=== PATIENT | female | born 1955 | race Caucasian/White ===

== ENCOUNTER 2017-05-25 20:29 | Emergency (ER) | payer OTHER ==
[2017-05-25] MEDS ORDERED: MORPHINE SULFATE 5 MG/ML PFS IVP ONE (20:42)
[2017-05-25] MEDS ORDERED: ONDANSETRON HCL IV 4 MG/2 ML VIAL IVP ONE (20:42)
--- NOTE | 2017-05-25 20:45 | Emergency Department Record ---
History of Present Illness - General Chief Complaint: Abdominal Pain Stated Complaint: ABD PAIN Time Seen by Provider: 05/25/17 20:41 Source: Patient Mode of Arrival: Ambulatory Limitations: No limitations - History of Present Illness Initial Comments: 61 yo female presents to ED with a CC of epigastric pain that began 3-4 hours ago that radiates through to her back. Patient reports nausea without vomiting , and denies history of these symptoms previously. Patient denies previous abdominal surgeries, and denies health problems other than DM II. Patient denies chest pain or difficulty breathing, and patient denies fevers, chills, or recent illness. MD Complaint: Abdominal pain Onset/Timin -: Hour(s) Location: Epigastric Radiation: Back Severity: Moderate Consistency: Constant Improves With: Nothing Worsens With: Nothing Associated Symptoms: Nausea - Related Data Patient : No Home Medications Medication Instructions Recorded Confirmed Last Taken Bupropion HCl [Wellbutrin Xl] 300 mg PO DAILY 05/25/17 05/25/17 Unknown Lisinopril [Zestril] 2.5 mg PO DAILY 05/25/17 05/25/17 Unknown Metformin HCl 500 mg PO DAILY 05/25/17 05/25/17 Unknown Thyroid,Pork [[place] Thyroid] 30 mg PO DAILY 05/25/17 05/25/17 Unknown Allergies Allergy/AdvReac Type Severity Reaction Status Date / Time No Known Drug Allergies Allergy Verified 05/25/17 20:35 Review of Systems Constitutional: Denies: Chills, Fever, Malaise, Night sweats Eyes: Denies: Eye discharge, Eye pain ENT: Denies: Congestion, Ear pain, Epistaxis Respiratory: Denies: Cough, Dyspnea Cardiovascular: Denies: Chest pain, Dyspnea on exertion Endocrine: Denies: Fatigue, Heat or cold intolerance Gastrointestinal: Reports: Abdominal pain, Nausea. Denies: Vomiting Genitourinary: Denies: Dysuria, Frequency, Incontinence, Retention Musculoskeletal: Denies: Arthralgia, Back pain Skin: Denies: Bruising, Change in color Neurological: Denies: Abnormal gait, Confusion, Headache, Seizure Psychiatric: Denies: Anxiety Hematological/Lymphatic: Denies: Anemia, Blood Clots Physical Exam - General General Appearance: Alert, Oriented x3, Cooperative, Moderate distress Limitations: No limitations - Head Head exam: Atraumatic, Normocephalic, Normal inspection Head exam detail: negative: Abrasion, Contusion, Vincent's sign, General tenderness, Hematoma, Laceration - Eye Eye exam: Normal appearance. negative: Conjunctival injection, Periorbital swelling, Periorbital tenderness, Scleral icterus - ENT Ear exam: negative: Auricular hematoma, Auricular trauma Nasal Exam: negative: Active bleeding, Discharge, Dried blood, Foreign body Mouth exam: negative: Drooling, Laceration, Muffled voice, Tongue elevation - Neck Neck exam: Normal inspection. negative: Meningismus, Tenderness - Respiratory Respiratory exam: Normal lung sounds bilaterally. negative: Rales, Respiratory distress, Rhonchi, Stridor - Cardiovascular Cardiovascular Exam: Regular rate, Normal rhythm, Normal heart sounds - GI/Abdominal GI/Abdominal exam: Soft, Tenderness (TTP LUQ, epigastric region on examination, no rebound or guarding present.), Other. negative: Rebound, Rigid - Rectal Rectal exam: Deferred - exam: Deferred - Extremities Extremities exam: Normal inspection. negative: Calf tenderness, Pedal edema, Tenderness - Back Back exam: Denies: CVA tenderness (R), CVA tenderness (L) - Neurological Neurological exam: Alert, Normal gait, Oriented X3 - Psychiatric Psychiatric exam: Normal affect, Normal mood - Skin Skin exam: Normal color. negative: Abrasion Type of lesion: negative: abrasion Course - Reevaluation(s) Reevaluation #1: 05/25/17 21:06 EKG: NSR 76 Normal axis, normal intervals No acute ST-T wave changes are present. Reevaluation #2: 05/25/17 21:18 Labs reviewed and are grossly unremarkable for an acute process. Reevaluation #3: 05/25/17 23:10 CT Abdomen and Pelvis: Dilation of the CBD and intrahepatic ducts, cannot exclude obstruction, no calcified gallstones present, uterine fibroid, chronic degenerative changes to the lumbar spine. Recommend ERCP or MRCP for further evaluation. Patient was reassessed and updated on all results, reports that he is resting pain-free at this time. Will continue to monitor for 45-60 minutes as the patient received Morphine and Dilaudid for her pain symptoms (last dose was 1 hour ago). Patient and family agree with the plan of care as discussed. Reevaluation #4: 05/25/17 23:57 On re-evaluation, patient reports that her pain symptoms have not returned. Laboratory studies do not appears c/w biliary obstruction either. Patient was counseled at length to return to ED for any recurrence of her symptoms and the patient verbalizes understanding of all instructions at this time. Medical Decision Making - Lab Data Result diagrams: 05/25/17 20:46 05/25/17 20:46 Disposition Disposition: Discharge Clinical Impression: Epigastric abdominal pain Disposition: Home, Self-Care Condition: (2) Stable Instructions: Abdominal Pain (ED) Additional Instructions: Return to ED if your symptoms worsen or if you have any concerns. Follow-up with your family doctor in 1-3 days as directed. Forms: Patient Portal Access Time of Disposition: 23:59 Quality - Quality Measures Quality Measures: N/A - Blood Pressure Screening Does Patient Have Any of the Following: No Blood Pressure Classification: Normal BP Reading Systolic Measurement: 118 Diastolic Measurement: 60 Screening for High Blood Pressure: < Normal BP, F/U Not Required > [G8783]
[2017-05-25 20:52] LABS: HEMATOCRIT 41.4 % (35.0-47.0); HEMOGLOBIN 13.8 gm/dl (11.6-16.0); MEAN CELL VOLUME 89.4 fl (81-97); MEAN CORPUSCULAR HEMOGLOBIN 29.8 pg (27-33); MEAN CORPUSCULAR HGB CONC 33.3 g/dl (32-36); MEAN PLATELET VOLUME 10.9 fl (7.4-10.4); PLATELET COUNT 349 K/uL (130-400); RED BLOOD COUNT 4.63 M/uL (3.80-5.40); RED CELL DISTRIBUTION WIDTH 13.4 % (11.5-14.5); WHITE BLOOD COUNT W/O DIFF 9.9 K/uL (4.2-12.2)
[2017-05-25 21:03] LABS: ALB/GLOB RATIO 1.4 (1.1-1.8); ALBUMIN 4.4 gm/dL (3.5-5.0); ALKALINE PHOSPHATASE 91 U/L (38-126); ALT/SGPT 33 U/L (9-52); ANION GAP 9.1 (7-16); AST/SGOT 28 U/L (14-36); BILIRUBIN,TOTAL 0.44 mg/dL (0.2-1.3); BLOOD UREA NITROGEN 18 mg/dL (7-17); CARBON DIOXIDE 22.9 mmol/L (22-30); CREATININE 0.8 mg/dL (0.52-1.04); EST GLOMERULAR FILTRATION RATE > 60 ml/min; GLUCOSE,RANDOM 160 mg/dL (70-110); LIPASE 85 U/L (23-300); TOTAL PROTEIN 7.5 gm/dL (6.3-8.2)
[2017-05-25] MEDS ORDERED: HYDROMORPHONE HCL 1MG/ML **SYRINGE IVP ONE (21:11)
[2017-05-25 21:15] LABS: TROPONIN I < 0.012 ng/mL (0.00-0.034)
--- NOTE | 2017-05-26 02:10 | CT SCAN REPORT ---
EXAM: CT SCAN ABDOMEN/PELVIS W CONTRAST HISTORY: UPPER ABDOMINAL PAIN. TECHNIQUE: CT of the abdomen and pelvis is performed following intravenous contrast administration. 90 mL of Omnipaque-300 contrast used for this examination. COMPARISON: None. FINDINGS: The lung bases are unremarkable. The liver and spleen are unremarkable. There is no pancreatic mass or inflammatory change identified. There are no calcified gallstones. There is mild prominence of the common bile duct and intrahepatic bile ducts. The common duct diameter is approximately 9 mm. MRCP or ERCP could be performed for further assessment. There is no adrenal lesion seen. There is bilateral renal function. No renal mass or hydronephrosis identified. There is no aortic aneurysm. No periaortic mass or adenopathy. There are no dilated bowel loops. The appendix is unremarkable. There is no pelvic mass, abscess, or adenopathy. No free air or free fluid. The uterus has a somewhat inhomogeneous appearance and uterine fibroids cant be excluded. No fracture or acute osseous abnormality. There are arthritic changes in the lower lumbar spine. IMPRESSION: 1. MILDLY DILATED COMMON BILE DUCT OF UNCERTAIN ETIOLOGY. MRCP OR ERCP COULD BE PERFORMED FOR FURTHER ASSESSMENT. NO CALCIFIED GALLSTONES SEEN. 2. POSSIBLE UTERINE FIBROIDS. 3. ARTHRITIC CHANGES LOWER LUMBAR SPINE. 4. OTHERWISE, UNREMARKABLE. JOB NUMBER: [id number] [facility]
== END 2017-05-26 00:21 | disposition home or self-care (01) ==
LOC: ER 20:29
DX: R10.13 Epigastric pain (principal); R11.0 Nausea
CPT/HCPCS: 99284 ×2; 96374; 96375; 83690; 84484; 80053; 85027; 74177; 93005; 93010; Q9967; J2405; J2270; J1170

== ENCOUNTER 2017-05-29 09:05 | Observation (INO) | payer OTHER ==
[2017-05-29] MEDS ORDERED: 0.9 % SODIUM CHLORIDE 1,000 ML BAG IV ONE (09:08)
--- NOTE | 2017-05-29 09:16 | Emergency Department Record ---
History of Present Illness - General Chief Complaint: Chest Pain Stated Complaint: CHEST PAIN Time Seen by Provider: 05/29/17 09:06 Source: Patient, Family Mode of Arrival: Ambulatory Limitations: No limitations - History of Present Illness Initial Comments: 61 yo female presents with pain that started on 05/25/17. She was seen in the ED initially with epigastric pain that radiated to her back. She was seen in the ED with normal labs, EKG, and a CT of the abdomen that demonstrated mildly dilated CBD with out calcified gall stones. The pain has not fully resolved. She has noted a decreased appetite the last 4 days. Eating gives her a fullness feeling in the throat and upper chest. The epigastric area remains tender. She was treated several months ago by Dr Vale for reflux and had a negative H. pylori. She was treated with with PPI and improved. She was taken off the medication and did well. She does not smoke, no significant alcohol or NSAID use. She had a scope by Dr Smith in the past and was told she had a "healing ulcer". No abdominal surgery history. She has noted some recent mild reflux. PCP Kavin Siddiqui MD Complaint: Other -: Days(s) (4) Onset: During rest Pain Location: Other (shoulder blades and neck) Pain Radiation: Back Severity: Moderate Quality: Aching Consistency: Constant - Related Data Allergies Allergy/AdvReac Type Severity Reaction Status Date / Time No Known Drug Allergies Allergy Verified 05/29/17 09:09 Review of Systems Constitutional: Denies: Chills, Fever, Malaise, Weakness Eyes: Denies: Eye discharge, Eye pain, Photophobia ENT: Denies: Congestion, Throat pain Respiratory: Denies: Cough, Dyspnea, Hemoptysis, Stridor, Wheezes Cardiovascular: Reports: As per HPI, Chest pain. Denies: Dyspnea on exertion, Edema, Palpitations, Syncope Endocrine: Denies: Fatigue, Polydipsia, Polyuria Gastrointestinal: Reports: As per HPI, Abdominal pain, Nausea. Denies: Diarrhea , Vomiting Musculoskeletal: Reports: Back pain. Denies: Arthralgia, Gout, Joint swelling, Myalgia, Neck pain Skin: Denies: Bruising, Change in color, Rash Neurological: Denies: Headache, Numbness, Weakness Psychiatric: Denies: Anxiety Hematological/Lymphatic: Denies: Anemia, Blood Clots, Easy bleeding, Easy bruising, Swollen glands Past Medical History - SOCIAL HISTORY Smoking Status: Never smoker Alcohol Use: Rare Drug Use: None - RESPIRATORY Hx Respiratory Disorders: No - CARDIOVASCULAR Hx Cardio Disorders: Yes Hx Chest Pain: Yes - NEURO Hx Neuro Disorders: No - GI Hx GI Disorders: No - Hx Genitourinary Disorders: No - ENDOCRINE Hx Endocrine Disorders: Yes Hx Diabetes: Yes (DM2) - MUSCULOSKELETAL Hx Musculoskeletal Disorders: No - PSYCH Hx Psych Problems: No - HEMATOLOGY/ONCOLOGY Hx Hematology/Oncology Disorders: No Family Medical History Any Significant Family History?: Yes Hx Heart Disease: Mother, Grandparents Physical Exam - General General Appearance: Alert, Oriented x3, Cooperative, No acute distress Limitations: No limitations - Head Head exam: Atraumatic, Normal inspection - Eye Eye exam: Normal appearance. negative: Conjunctival injection, Periorbital swelling - ENT ENT exam: Normal exam, Mucous membranes moist, Normal orophraynx Ear exam: Normal external inspection Nasal Exam: Normal inspection. negative: Discharge Mouth exam: Normal external inspection - Neck Neck exam: Normal inspection, Full ROM. negative: Tenderness - Respiratory Respiratory exam: Normal lung sounds bilaterally. negative: Chest wall tenderness, Respiratory distress, Rhonchi, Stridor, Wheezes - Cardiovascular Cardiovascular Exam: Regular rate, Normal rhythm, Normal heart sounds Peripheral Pulses: 2+: Radial (R), Radial (L) - GI/Abdominal GI/Abdominal exam: Soft, Tenderness (tender in the epigastrium). negative: Distended, Rebound, Rigid - Rectal Rectal exam: Deferred - exam: Deferred - Extremities Extremities exam: Normal inspection. negative: Pedal edema, Tenderness - Back Back exam: Reports: Normal inspection, Full ROM. Denies: CVA tenderness (R), CVA tenderness (L), Muscle spasm, Rash noted, Tenderness - Neurological Neurological exam: Alert, Normal gait, Oriented X3 - Psychiatric Psychiatric exam: Normal affect, Normal mood. negative: Agitated, Anxious - Skin Skin exam: Dry, Intact, Normal color, Warm Course - Reevaluation(s) Reevaluation #1: EMR reviewed from 05/[address] reviewed EKG 09:09 NSR, rate 89, intervals normal, ST normal, [place] normal No changes on EKG from 05/25/17 05/29/17 09:15 Reevaluation #2: The labs including CBC, CMP,Troponin, Lipase, LFT's are normal. 05/29/17 09:52 02/01/2010 Colonoscopy with diverticulosis 02/13/12 EGD Gastric body scar, presumably prior scar, GERD findings at GE junction. Rec PPI and HIDA 05/29/17 10:00 Reevaluation #3: US with multiple non mobile stones, 4cm stone in the neck, equivocal thickening of wall, no pericholecyctic fluid. Dr Benitez jaurez. 05/29/17 11:33 I NIA Marquis of general surgery The patient was given options. She agrees with admission admission for gallbladder removal tomorrow Admit NPO after Midnight, consent for surgery. No antibiotics needed at this time given no fever, normal CBC. 05/29/17 12:17 Medical Decision Making - Lab Data Result diagrams: 05/29/17 09:11 05/29/17 09:10 Disposition Disposition: Admit Clinical Impression: Biliary colic Cholelithiasis Qualifiers: Cholelithiasis location: gallbladder Cholecystitis presence: without cholecystitis Disposition: Still a Patient at [facility] Decision to Admit: Admit from ER Decision to Admit Date: 05/29/17 Decision to Admit Time: 12:19 Condition: (1) Good Forms: Patient Portal Access Time of Disposition: 12:20 Quality - Quality Measures Quality Measures: N/A - Blood Pressure Screening Does Patient Have Any of the Following: No Blood Pressure Classification: Hypertensive Reading Systolic Measurement: 129 Diastolic Measurement: 93 Screening for High Blood Pressure: < Pre-Hypertensive BP, F/U Documented > [ G8950] Pre-Hypertensive Follow-up Interventions: Referral to alternative/primary care provider.
[2017-05-29 09:28] LABS: BASO % 0.5 % (0-6); EOS % 3.7 % (0-6); GRAN % 66.9 % (47-80); HEMATOCRIT 41.2 % (35.0-47.0); HEMOGLOBIN 13.4 gm/dl (11.6-16.0); LYMPH % 20.8 % (16-45); MEAN CELL VOLUME 90.2 fl (81-97); MEAN CORPUSCULAR HEMOGLOBIN 29.3 pg (27-33); MEAN CORPUSCULAR HGB CONC 32.5 g/dl (32-36); MEAN PLATELET VOLUME 10.7 fl (7.4-10.4); MONO % 8.1 % (0-9); PLATELET COUNT 316 K/uL (130-400); RED BLOOD COUNT 4.57 M/uL (3.80-5.40); RED CELL DISTRIBUTION WIDTH 13.5 % (11.5-14.5); WHITE BLOOD COUNT W/O DIFF 5.7 K/uL (4.2-12.2)
[2017-05-29] MEDS ORDERED: PANTOPRAZOLE SODIUM IV 40 MG VIAL IVP ONE (09:35)
[2017-05-29 09:39] LABS: INR 0.98; PARTIAL THROMBOPLASTIN TIME 26.8 SECONDS (24.5-39.1); PROTHROMBIN TIME (PATIENT) 10.6 SECONDS (9.5-12.1)
[2017-05-29 09:46] LABS: ALB/GLOB RATIO 1.5 (1.1-1.8); ALBUMIN 4.3 g/dL (4.0-5.0); ALKALINE PHOSPHATASE 100 U/L (35-104); ALT/SGPT 11 U/L (<33); AST/SGOT 15 U/L (10.0-35.0); BLOOD UREA NITROGEN 19.1 mg/dL (17.4-49.2); CREATININE 0.6 mg/dL (0.5-0.9); EST GLOMERULAR FILTRATION RATE > 60 mL/min; GLUCOSE,RANDOM 100 mg/dL (74-109); LIPASE 19 U/L (13-60); TOTAL PROTEIN 7.2 g/dL (6.6-8.7)
--- NOTE | 2017-05-29 12:43 | ULTRASOUND REPORT ---
EXAM: ULTRASOUND OF THE ABDOMEN COMPLETE HISTORY: MID TO UPPER ABDOMINAL PAIN FOR FOUR DAYS. TECHNIQUE: Routine ultrasound examination of the abdomen was obtained. Comparison: CT of the abdomen and pelvis with contrast dated 05/25/17. FINDINGS: The pancreatic tail is obscured by overlying bowel gas. The remainder of the pancreas is visualized and without focal abnormality. The abdominal aorta and inferior vena cava are normal in appearance. The liver is homogeneous in echotexture. No gross intrahepatic biliary ductal dilatation is seen. The common hepatic duct is, however, mildly prominent visualized down to the level of the pancreatic head. It measures 7.9 mm in maximum diameter. There are multiple nonmobile shadowing gallstones, one of which is located within the gallbladder neck and measuring approximately 4 cm. These are not visualized on recent CT examination. The gallbladder wall is at the upper limits of normal in thickness. No pericholecystic fluid is seen. There is an equivocal positive sonographic Pavon's sign. The spleen is not enlarged and is homogeneous in echotexture. Screening evaluation of the kidneys does not demonstrate hydronephrosis nor mass with the right kidney measuring 9.9 cm in length and the left kidney measuring 9.4 cm in length. IMPRESSION: 1. MULTIPLE NONMOBILE SHADOWING GALLSTONES WITH BORDERLINE GALLBLADDER WALL THICKENING AND AN EQUIVOCAL POSITIVE SONOGRAPHIC PAVON'S SIGN. CHOLECYSTITIS IS NOT EXCLUDED. 2. MILD PROMINENCE OF THE COMMON HEPATIC/COMMON BILE DUCT MEASURING 7.9 MM IN MAXIMUM DIAMETER. CORRELATION WITH SERUM BILIRUBIN AND ALKALINE PHOSPHATASE LEVELS IS RECOMMENDED. 3. NO OTHER ABNORMALITY IS SEEN. JOB NUMBER: [id number] [facility]
[2017-05-29] MEDS ORDERED: ONDANSETRON HCL IV 4 MG/2 ML VIAL IVP PRN (14:51)
[2017-05-29] MEDS ORDERED: 0.9 % SODIUM CHLORIDE 1000ML 1,000 ML IV PRN (14:51)
[2017-05-29] MEDS ORDERED: MORPHINE SULFATE 5 MG/ML PFS IVP PRN (14:51)
[2017-05-29] MEDS: DEXTROSE 5%-LACTATED RINGERS 1,000 ML IV PRN (16:17)
[2017-05-29] MEDS: NOVOLOG FLEXPEN (INSULIN ASPART) 100 UNITS/ML SQ SCH ×2 (16:19→20:41)
[2017-05-30] MEDS: DEXTROSE 5%-LACTATED RINGERS 1,000 ML IV PRN
[2017-05-30] MEDS: NOVOLOG FLEXPEN (INSULIN ASPART) 100 UNITS/ML SQ SCH ×5 (00:05→17:17)
[2017-05-30] MEDS ORDERED: ACETAMINOPHEN 1,000 MG/100 ML BTL IVPB ONE (13:30)
[2017-05-30] MEDS ORDERED: FAMOTIDINE 20MG TABLET PO ONE (13:30)
[2017-05-30] MEDS ORDERED: METOCLOPRAMIDE 10 MG TABLET PO ONE (13:30)
[2017-05-30] MEDS ORDERED: MECLIZINE 25 MG TABLET PO ONE (13:30)
[2017-05-30] MEDS ORDERED: BUPIVACAINE 0.25% W/EPI MPF 30ML VIAL IVP ONE (14:00)
[2017-05-30] MEDS ORDERED: KETOROLAC 30 MG/ML VIAL IVP ONE (18:44)
[2017-05-30] MEDS ORDERED: SEVOFLURANE 250 ML INH ONE (18:44)
[2017-05-30] MEDS ORDERED: LIDOCAINE 2% MDV (20MG/ML) 20ML VIAL IV ONE (18:44)
[2017-05-30] MEDS ORDERED: ONDANSETRON HCL IV 4 MG/2 ML VIAL IVP ONE (18:44)
[2017-05-30] MEDS ORDERED: SUGAMMADEX SODIUM 200 MG/2 ML VIAL IV ONE (18:44)
[2017-05-30] MEDS ORDERED: SUFENTANIL CITRATE 50 MCG/ML AMPUL IV ONE (18:44)
[2017-05-30] MEDS ORDERED: DEXAMETHASONE 4 MG/ML 1ML VIAL IVP ONE (18:44)
[2017-05-30] MEDS ORDERED: PROPOFOL 10 MG/ML VIAL IV ONE (18:44)
[2017-05-30] MEDS ORDERED: ROCURONIUM BROMIDE 50MG/5ML VIAL IV ONE (18:44)
--- NOTE | 2017-06-03 14:10 | Operative Note ---
DATE OF SURGERY: 05/30/2017 Surgeon: Himanshu Marquis DO PREOPERATIVE DIAGNOSIS: Cholelithiasis with cholecystitis. POSTOPERATIVE DIAGNOSIS: Acute cholecystitis. OPERATION: Laparoscopic cholecystectomy. Indication: The patient is a 61-year-old female who presented to the ER with ongoing epigasatric and right subcostal pain. She stated this radiated between her shoulder blades and her back and she is extremely nauseated. She was seen in the ER earlier in the week and they thought it was her gallbladder. She came back in and imaging studies were repeated. This did show a 4 cm gallstone in the neck of the gallbladder with gallbladder wall thickening. She was fairly tender on exam. Her laboratory values were all normal. We did discuss cholecystectomy versus medical management. She desires surgical intervention. Risks include bleeding, infection, ductal injury, possible conversion to open, postoperative bile leak. She understood this fully. PROCEDURE: Thereafter, consent was signed and questions answered. She was taken to the operating room and placed in a supine position. General anesthesia was administered per the department of anesthesia. The patient's abdomen was prepped and draped in the usual sterile fashion. The supraumbilical region was anesthetized with a total of 2 mL of 0.25% Sensorcaine with epinephrine. A 2 cm supraumbilical incision was made. This was carried down to the anterior rectus fascia. This was incised. Rowdy clamps were placed on the fascial edges and brought up into the wound. Stay sutures of 0 Vicryl were placed. Posterior rectus sheath was identified and incised. The peritoneal cavity was entered bluntly. At this time, a 10 mm blunt Alexis port was placed and adequate pneumoperitoneum was established. Under direct visualization, additional 5 mm epigastric and two 5 mm right subcostal ports were placed. The gallbladder was identified and noted to be very thickened, edematous, and firm. We were unable to grasp this due to the tense nature. Therefore, a Ashley needle was used to drain the gallbladder of about 80 mL of purulent bile. Using traumatic graspers, the gallbladder was then retracted in a cephalad direction due extensive inflammatory changes with the omentum stuck. This was taken out bluntly. You could see that the patient had a very large dilated common hepatic duct basically attached to the medial aspect of the gallbladder. A plane was created bluntly with . This the gallbladder off the common hepatic duct. Due to the inflamed nature, I did switch to a dome-down technique where the liver was lifted anteriorly. The gallbladder was taken off the liver with the Elvin harmonic. We did cone down posteriorly and clearly could see the common hepatic duct, cystic duct. The patient had what looked like a large right hepatic artery coursing underneath the common bile duct up and around to the medial aspect of the gallbladder. There was a short cystic artery coming off this. The gallbladder was entirely freed up from the liver and only 2 structures remained; the cystic duct and cystic artery. Each one was clearly visualized. I did use the 10 mm angled lens to aid in visualization. The common hepatic duct was seen medially as well as the right hepatic artery laterally. The cystic artery was clipped as well as the cytic duct. This was placed in EndoCatch bag and brought out through the umbilical port. I did have to stretch the skin slightly to accommodate the large gallstones. The right upper quadrant was then irrigated with approximately 1000 mL of sterile saline. There was no bleeding noted. No bile leak noted. No bowel injury noted. No bile duct injury noted. The patient was leveled out. The pneumoperitoneum was released. All ports were removed. The fascia was closed with 0 Vicryl in a [id number] fashion. The port sites were closed with 4-0 Vicryl. She was taken to the recovery room in satisfactory condition. FINDINGS AT THE TIME OF SURGERY: Acute cholecystitis. CC: Maximo PASTOR
== END 2017-05-30 18:45 | disposition home or self-care (01) ==
LOC: ER 09:05 → MEDSURG 14:28
PROVIDERS: ADMIT Surgery; ATTEND Surgery
DX: K80.10 Calculus of gallbladder with chronic cholecystitis without obstruction (principal); K82.4 Cholesterolosis of gallbladder; E11.9 Type 2 diabetes mellitus without complications; Z79.84 Long term (current) use of oral hypoglycemic drugs; E03.9 Hypothyroidism, unspecified
CPT/HCPCS: 47562; 00790; 99285 ×2; 96374; 83690; 85025; 85730; 85610; 84484; 80053; 36416 ×2; 82948 ×2; 76700; 93005; 93010; G0378 ×2; J1885; J2405; J3490; C9113; J7030